=== PATIENT | male | born 1995 | race Caucasian/White ===

== ENCOUNTER 2017-07-20 15:14 | Emergency (ER) | payer OTHER ==
[~2017-07-20] VITALS: Ht 175.3 cm; Wt 73.5 kg
--- NOTE | 2017-07-20 15:30 | NUR ---
PATIENT WAS SEEN AND EXAMINED BY DR RENEE. PATIENT NOTED NOT IN ANY DISTRESS.
[2017-07-20] MEDS ORDERED: MECLIZINE HCL 25 MG TABLET ONE (15:41)
[2017-07-20] MEDS ORDERED: MECLIZINE HCL 25 MG TABLET PO ONE (15:45)
--- NOTE | 2017-07-20 16:16 | NUR ---
PT WAS D/C TO HOME. D/C INSTRUCTIONS GIVEN TO THE PT.
[2017-07-20 16:17] VITALS: BP 128/76
== END 2017-07-20 16:17 | disposition home or self-care (01) ==
LOC: ER 15:16
DX: H83.09 Labyrinthitis, unspecified ear (principal)
CPT/HCPCS: A4663; J8597